=== PATIENT | female | born 2000 | race Hispanic/Latino ===

== ENCOUNTER → 2025-07-07 | Outpatient (CLI) | payer SELFPAY, OTHER ==
--- NOTE | 2025-07-07 10:20 | MRI_ITS ---
PROCEDURE: LOWER EXT JOINT ONLY (ROUTINE) 07/07/2025 REASON FOR EXAM: KNEE PAIN,LEFT ANTERIOR TECHNIQUE: Procedure Code: MRILEJ Modality: MR Procedure: LOWER EXT JOINT ONLY (ROUTINE) Multiplanar and multisequence images were obtained without IV contrast administration. COMPARISON: COMPARISON : FINDINGS: Mild signal changes of the patellofemoral articulation, most apparent at the posterior patella. Also, the presence infrapatellar fat pad edema suggests current inflammatory process. Anterior subcutaneous edema is also noted. No joint effusion is evident. No Valencia's or popliteal cyst is seen No abnormal osseous signal is seen. Cruciate and collateral ligaments appear intact. Visualized extensor tendons appear intact. No meniscal tear is seen. MRI/Lower Ext Joint Only (Routine) IMPRESSION: Mild signal changes of the patellofemoral articulation, most apparent at the po sterior patella. Also, the presence infrapatellar fat pad edema suggests current inflammatory process. This process is most like ly posttraumatic in nature. Also, overlying subcutaneous edema is seen. Reading Location: [place] [id number]
== END | disposition home or self-care (01) ==
PROVIDERS: PCP Family Medicine; Visit Provider Family Medicine
DX: M25.562 Pain in left knee (principal)
CPT/HCPCS: 73721